=== PATIENT | male | born 1980 | race African-American/Black ===

== ENCOUNTER 2019-10-07 22:23 | Observation (INO) | payer BC ==
[2019-10-07] MEDS ORDERED: Ketorolac 15 MG/ML SDV IVPUSH ONE (23:41)
[2019-10-07] MEDS ORDERED: Sodium Chloride 0.9% 1,000 ML IV ONE (23:41)
[2019-10-07] MEDS ORDERED: Sodium Chloride 0.9% 2.5 ML Syringe FLUSH PRN (23:41)
[2019-10-07] MEDS ORDERED: Sodium Chloride 0.9% 10 ML Syringe FLUSH PRN (23:41)
[2019-10-07] MEDS ORDERED: Morphine 4 MG/ML Syringe IVPUSH ONE (23:41)
--- NOTE | 2019-10-07 23:45 | EDM.PDOC ---
ED HPI GENERAL MEDICAL PROBLEM - General Chief Complaint: Skin Complaint Stated Complaint: INFECTION Time Seen by Provider: 10/07/19 23:21 - History of Present Illness INITIAL COMMENTS - FREE TEXT/NARRATIVE: History of present illness: 39-year-old male presenting with rectal/perianal pain. Patient reports about 1 week ago he had a hemorrhoidectomy and fistula repair done in [place]. Since then he has been having ongoing pain, however the last few days pain has become significantly worsened and more sharp in character. He has been taking the oxycodone that was prescribed but pain has not improved. He has now noticed cuauhtemoc th bleeding and pus coming from the anal area. No diarrhea. No fevers or chills. He does report he has a history of HIV for which he takes his medication and is compliant. Last CD4 count was 490 and viral load was undetectable. Reports he also had a hemorrhoidectomy several months prior to this and did not have anywhere near this pain level. Review of systems: As per history of present illness and below otherwise all systems reviewed and negative. Past medical history: As per history of present illness and as reviewed below otherwise noncontributory. Surgical history: As per history of present illness and as reviewed below otherwise noncontributory. Social history: No reported history of drug or alcohol abuse. Family history: As per history of present illness and as reviewed below otherwise noncontributory. Physical exam: GEN: no acute distress, well appearing HEENT: Atraumatic, normocephalic, mucous membranes moist, Neck: supple, nontender, trachea midline. Lungs: No respiratory distress. Heart: RRR Abdomen: Soft, nondistended, nontender. Rectal: Fistula site appears inflamed with purulent discharge. Very tender on rectal exam. External hemorrhoids. No thrombosed hemorrhoids. No anal fissure seen, no masses palpable on rectal exam Back: nontender Extremities: Atraumatic. Neurovascularly intact. Neuro: Awake, alert, oriented. Neuro Exam nonfocal. Skin: warm, dry, no lesions Diagnostics: [] Therapeutics: [] MDM: Impression: [] Plan: [] Definitive disposition and diagnosis as appropriate pending reevaluation and review of above. anal Pain Score (Numeric/FACES): 8 - Related Data Allergies Allergy/AdvReac Type Severity Reaction Status Date / Time No Known Allergies Allergy Verified 10/07/19 23:14 Home Meds: Home Meds Non-Formulary Medication [NF Drug] 10/07/19 [History] Past Medical History Other Gastrointestinal History: anal fistula repair - Infectious Disease History Infectious Disease History: Reports: HIV-Human Immunodeficiency Virus ED ROS GENERAL - Review of Systems Review Of Systems: See Below (See dictation) ED EXAM, SKIN/RASH Exam: See Below (See dictation) Course - Vital Signs Text/Narrative:: Perianal/perirectal pain. Immunocompromised/HIV positive. Recent hemorrhoidectomy/fistula repair. Labs unremarkable. CT scan shows right buttock cellulitis to the anal edge but not involving anus and no deep space infection/abscess or fluid collection. Broad spectrum antibiotics given. Cipro/Clinda. Last Recorded V/S: Last Vital Signs Temp 97.0 F 10/07/19 23:10 Pulse 105 H 10/07/19 23:10 Resp 18 10/07/19 23:10 BP 149/110 H 10/07/19 23:10 Pulse Ox 97 10/07/19 23:10 - Orders/Labs/Meds Orders: Active Orders 24 hr Category Date Time Status Ciprofloxacin in D5W [Cipro in D5W 400 MG/200 ML] 400 Med 10/08/19 01:52 Active mg Premix Bag 1 bag IV ONETIME Sodium Chloride 0.9% [Saline Flush] Med 10/07/19 23:41 Active 10 ml FLUSH ASDIRECTED PRN Sodium Chloride 0.9% [Saline Flush] Med 10/07/19 23:41 Active 2.5 ml FLUSH ASDIRECTED PRN Saline Lock Insert [OM.PC] Stat Oth 10/07/19 23:42 Ordered Medication Orders Ciprofloxacin/Dextrose 400 mg/ (Premix) 200 mls @ 200 mls/hr IV ONETIME ONE Stop: 10/08/19 02:51 Last Admin: 10/08/19 02:10 Dose: 200 mls/hr Documented by: NOMI Piperacillin Sod/Tazobactam (Sod 3.375 gm/ Sodium Chloride) 50 mls @ 100 mls/hr IV Q6H RICK Oxycodone HCl (Oxycodone) 5 mg PO Q4H PRN PRN Reason: Pain (moderate 4-6) Sodium Chloride (Saline Flush) 10 ml FLUSH ASDIRECTED PRN PRN Reason: Keep Vein Open Sodium Chloride (Saline Flush) 2.5 ml FLUSH ASDIRECTED PRN PRN Reason: Keep Vein Open Vancomycin HCl (Pharmacy To Dose - Vancomycin) 1 dose .XX ASDIRECTED RICK Labs: Laboratory Tests 10/07/19 10/07/19 Range/Units 23:55 23:55 WBC 7.47 (4.0-11.0) K/uL RBC 5.05 (4.50-5.90) M/uL Hgb 14.4 (13.0-17.0) g/dL Hct 44.8 (38.0-50.0) % MCV 88.7 (80.0-98.0) fL MCH 28.5 (27.0-32.0) pg MCHC 32.1 (31.0-37.0) g/dL RDW Std Deviation 44.8 (28.0-62.0) fl RDW Coeff of Ajay 14 (11.0-15.0) % Plt Count 285 (150-400) K/uL MPV 11.00 (7.40-12.00) fL Neut % (Auto) 39.5 L (48.0-80.0) % Lymph % (Auto) 48.1 H (16.0-40.0) % [place] % (Auto) 11.0 (0.0-15.0) % Eos % (Auto) 1.1 (0.0-7.0) % Baso % (Auto) 0.3 (0.0-1.5) % Neut # (Auto) 3.0 (1.4-5.7) K/uL Lymph # (Auto) 3.6 H (0.6-2.4) K/uL [place] # (Auto) 0.8 (0.0-0.8) K/uL Eos # (Auto) 0.1 (0.0-0.7) K/uL Baso # (Auto) 0.0 (0.0-0.1) K/uL Nucleated RBC % 0.0 /100WBC Nucleated RBCs # 0 K/uL Sodium 139 (136-148) mmol/L Potassium 4.3 (3.5-5.1) mmol/L Chloride 104 (98-107) mmol/L Carbon Dioxide 26.0 (21.0-32.0) mmol/L BUN 17 (7.0-18.0) mg/dL Creatinine 1.3 (0.8-1.3) mg/dL Est Cr Clr Drug Dosing TNP Estimated GFR (MDRD) > 60.0 ml/min Glucose 129 H (74-106) mg/dL Calcium 9.9 (8.5-10.1) mg/dL Total Bilirubin 0.1 L (0.2-1.0) mg/dL AST 39 H (15-37) IU/L ALT 58 (14-63) IU/L Alkaline Phosphatase 56 (46-116) U/L Total Protein 9.3 H (6.4-8.2) g/dL Albumin 4.0 (3.4-5.0) g/dL Globulin 5.3 H (2.6-4.0) g/dL Albumin/Globulin Ratio 0.8 L (0.9-1.6) Meds: Medications Generic Name Dose Route Start Last Admin Trade Name Freq PRN Reason Stop Dose Admin Ciprofloxacin/Dextrose 400 mg/ 200 mls @ 200 mls/hr 10/08/19 01:52 10/08/19 02:10 Premix IV 10/08/19 02:51 200 mls/hr ONETIME ONE Administration Piperacillin Sod/Tazobactam 50 mls @ 100 mls/hr 10/08/19 04:00 Sod 3.375 gm/ Sodium Chloride IV Q6H RICK Oxycodone HCl 5 mg 10/08/19 02:24 Oxycodone PO Q4H PRN Pain (moderate 4-6) Sodium Chloride 10 ml 10/07/19 23:41 Saline Flush FLUSH ASDIRECTED PRN Keep Vein Open Sodium Chloride 2.5 ml 10/07/19 23:41 Saline Flush FLUSH ASDIRECTED PRN Keep Vein Open Vancomycin HCl 1 dose 10/08/19 02:30 Pharmacy To Dose - Vancomycin .XX ASDIRECTED RICK Discontinued Medications Generic Name Dose Route Start Last Admin Trade Name Freq PRN Reason Stop Dose Admin Sodium Chloride 1,000 mls @ 999 mls/hr 10/07/19 23:41 10/08/19 00:28 Normal Saline IV 10/08/19 00:41 999 mls/hr .Bolus ONE Administration Clindamycin Phosphate 600 mg/ 33.3333 mls @ 100 mls/hr 10/08/19 01:49 Premix IV 10/08/19 02:08 ONETIME ONE Iopamidol 100 ml 10/08/19 01:42 10/08/19 01:45 Isovue-370 (76%) IVPUSH 10/08/19 01:43 100 ml ONETIME STA Administration Ketorolac Tromethamine 15 mg 10/07/19 23:41 10/08/19 00:28 Toradol IVPUSH 10/07/19 23:42 15 mg ONETIME ONE Administration Morphine Sulfate 4 mg 10/07/19 23:41 10/08/19 00:30 Morphine IVPUSH 10/07/19 23:42 4 mg ONETIME ONE Administration - Re-Assessments/Exams Free Text/Narrative Re-Assessment/Exam: 10/08/19 01:48 Discussed all results with the patient. He is feeling somewhat better. Discussed recommendation for admission to the hospital for IV antibiotics and close monitoring overnight to ensure no worsening of the cellulitis. Patient agrees with this plan. 10/08/19 01:[address] Servin for admission, who agrees and accepts admission. Placed under observation as the patient may be able to go home tomorrow if feeling better. Departure - Departure Time of Disposition: 01:48 Disposition: Refer to Observation Clinical Impression: Perianal cellulitis - Discharge Information Sepsis Event Note (ED) - Evaluation Sepsis Screening Result: No Definite Risk - Focused Exam Vital Signs: Vital Signs Temp Pulse Resp BP Pulse Ox 10/07/19 23:10 97.0 F 105 H 18 149/110 H 97 - My Orders Last 24 Hours: My Active Orders 10/07/19 23:41 Sodium Chloride 0.9% [Saline Flush] 10 ml FLUSH ASDIRECTED PRN Sodium Chloride 0.9% [Saline Flush] 2.5 ml FLUSH ASDIRECTED PRN 10/07/19 23:42 Saline Lock Insert [OM.PC] Stat 10/08/19 01:52 Ciprofloxacin in D5W [Cipro in D5W 400 MG/200 ML] 400 mg Premix Bag 1 bag IV ONETIME - Assessment/Plan Last 24 Hours: My Active Orders 10/07/19 23:41 Sodium Chloride 0.9% [Saline Flush] 10 ml FLUSH ASDIRECTED PRN Sodium Chloride 0.9% [Saline Flush] 2.5 ml FLUSH ASDIRECTED PRN 10/07/19 23:42 Saline Lock Insert [OM.PC] Stat 10/08/19 01:52 Ciprofloxacin in D5W [Cipro in D5W 400 MG/200 ML] 400 mg Premix Bag 1 bag IV ONETIME
[2019-10-08 00:23] LABS: BLOOD UREA NITROGEN,BUN 17 mg/dL (7.0-18.0); CHLORIDE,CL 104 mmol/L (98-107); GLUCOSE RANDOM 129 mg/dL (74-106); POTASSIUM,K 4.3 mmol/L (3.5-5.1); SODIUM,NA 139 mmol/L (136-148)
--- NOTE | 2019-10-08 01:30 | CT ---
INDICATION: Possible perirectal or perianal abscess. Pain. COMPARISON: None available TECHNIQUE: CT examination of the abdomen and pelvis was performed with the uneventful intravenous administration of 100 cc of Isovue 370 while 3 mm thick axial sections were obtained from the lung bases through the pubic symphysis. Oral contrast was not administered. Please note that all CT scans at this facility use dose modulation, iterative reconstruction, and/or weight-based dosing when appropriate to reduce radiation dose to as low as reasonably achievable. FINDINGS: In the abdomen, the liver has patchy low density consistent with fatty infiltration. It is otherwise normal in appearance. The spleen, pancreas, and adrenals are normal in appearance. There is a 1.3 centimeter cyst in the lower pole of the right kidney. Tiny cysts are seen scattered throughout the left kidney. The kidneys are otherwise normal in appearance. The gallbladder is normal in appearance. The abdominal aorta is normal in caliber with no sign of dilatation. There is no sign of retroperitoneal mass or adenopathy. The stomach, loops of small bowel, and colon in the abdomen are normal in appearance. In the pelvis, the appendix is normal in appearance with no sign of inflammatory process. The loops of small bowel and colon in the pelvis are normal in appearance. The prostate is normal in appearance. The urinary bladder is normal in appearance. There is no sign of pelvic or inguinal mass or adenopathy. There is mild inflammatory stranding in the medial right buttock extending superiorly to the anal verge, but not into or beyond the anus. There is no sign of any inflammatory stranding in the perirectal space. There is no sign of any fluid collection, gas in the soft tissues, or foreign body. The findings are that of mild common nonspecific cellulitis. There is no sign of free air or free fluid in the abdomen or pelvis. There is mild linear density along the medial aspect of the right lung base consistent with previous inflammatory disease. The rest of the lung bases is clear. The osseous structures are normal in appearance for the patient`s age. IMPRESSION: CT of the abdomen shows patchy fatty infiltration of the liver. CT of the pelvis shows mild cellulitis of the right medial buttock extending to the anal verge, but not into the anus or into the perirectal space. No sign of any abscess. No sign of any foreign body. Please note that all CT scans at this facility use dose modulation, iterative reconstruction, and/or weight-based dosing when appropriate to reduce radiation dose to as low as reasonably achievable. Dictated by Gurjit Erwin MD @ Oct 08 2019 1:21AM Signed by Dr. Gurjit Erwin @ Oct 08 2019 1:28AM
[2019-10-08] MEDS ORDERED: Iopamidol 755 Mg/ML 100 ML Bottle IVPUSH STA (01:42)
[2019-10-08] MEDS ORDERED: Clindamycin Phosphate in D5W 600 MG in Premix Bag 1 BAG IV ONE ×2 (01:49)
[2019-10-08] MEDS ORDERED: Ciprofloxacin in D5W 400 MG in Premix Bag 1 BAG IV ONE ×2 (01:52)
[2019-10-08] MEDS: oxyCODONE 5 MG Tab PO PRN ×2 (03:06→09:14)
[2019-10-08] MEDS ORDERED: Clindamycin Phosphate in D5W 50 ML ONE (03:12)
[2019-10-08] MEDS: Piperacillin/Tazobactam 3.375 GM in Sodium Chloride 0.9% 50 ML IV SCH ×2 (04:28→09:16)
--- NOTE | 2019-10-08 08:00 | PCM.HP.2 ---
H&P History of Present Illness - General Date of Service: 10/08/19 Admit Problem/Dx: Admission Diagnosis/Problem Admission Diagnosis/Problem Cellulitis of buttock Source of Information: Patient History Limitations: Reports: No Limitations - History of Present Illness Initial Comments - Free Text/Narative: This 39 year old male with pmh of HIV and hemorrhoids presented to the ED last evening with complaints of rectal pain and purulent drainage. He reports he had hemorrhoidectomy [address] Sal in [place]. He reports pain was a little more than his previous hemorrhoidectomy and was needing pain medications which Dr Sal provided. He reports two days ago the pain elevated from a throbbing to a sharp stabbing pain and the drainage became slightly blood and purulent. He decided to be evaluated in the ED. He denies fevers or chills. No dyspnea or chest pain. Denies abdominal pain or urinary trouble. Reports he has taken some stool softeners since surgery and had BM 1 day ago. He reports he has been doing some sitz baths, but not regularly. He denies recreational drug use, no tobacco use and rare/social alcohol use. He reports he has been complaint with anti retrovirals for HIV, only missed last night because he didn't bring it with him. Reports CD4 counts have been low. Denies antibiotics after procedure in [place]. In the ED labwork WNL. CT abd/pelvis revealed mild cellulitis of the right medial buttock extending to the anal verge, but not into the anus or into the perirectal space. he was treated with Ciprofloxacin and Clindamycin in the ED and admitted for observation. anal Pain Score (Numeric/FACES): 6 - Related Data Allergies/Adverse Reactions: Allergies Allergy/AdvReac Type Severity Reaction Status Date / Time No Known Allergies Allergy Verified 10/08/19 05:04 Home Medications: Home Meds Bictegrav/Emtricit/Tenofov Ala [Biktarvy 50-200-25 mg Tablet] 1 tab PO DAILY 10/08/19 [History] Budesonide/Formoterol [Symbicort 160-4.5 MCG] 2 inh IH BID PRN 10/08/19 [History] Ciprofloxacin [Ciprofloxacin HCl] 500 mg PO BID #14 tab 10/08/19 [Rx] Docusate Sodium [Colace] 100 mg PO BID #60 cap 10/08/19 [Rx] Ibuprofen [Motrin] 400 mg PO QID PRN #1 tab 10/08/19 [Rx] RABEprazole Sodium [Aciphex] 20 mg PO DAILY 10/08/19 [History] metroNIDAZOLE [Flagyl] 500 mg PO Q8H #21 tablet 10/08/19 [Rx] oxyCODONE 10 mg PO Q6H PRN #15 tablet 10/08/19 [Rx] Past Medical History Other Gastrointestinal History: anal fistula repair - Infectious Disease History Infectious Disease History: Reports: HIV-Human Immunodeficiency Virus - Past Surgical History GI Surgical History: Reports: Other (See Below) (hemorrhoidectomy x 2, recently September 2019) Social & Family History - Tobacco Use Smoking Status *Q: Never Smoker - Caffeine Use Caffeine Use: Reports: Soda - Alcohol Use Alcohol Use Frequency: Rarely, Socially - Recreational Drug Use Recreational Drug Use: No - Living Situation & Occupation Living situation: Reports: Alone Occupation: Employed H&P Review of Systems - Review of Systems: Review Of Systems: See Below General: Reports: No Symptoms. Denies: Fever, Chills, Malaise, Weakness Pulmonary: Reports: No Symptoms. Denies: Shortness of Breath Cardiovascular: Reports: No Symptoms. Denies: Chest Pain Gastrointestinal: Reports: Other (rectal pain with purulent drainage.). Denies: Abdominal Pain, Black Stool, Bloody Stool, Nausea, Vomiting Skin: Reports: Wound (rectal incision) Neurological: Reports: No Symptoms Hematologic/Lymphatic: Reports: No Symptoms Immunologic: Reports: No Symptoms Exam - Exam Exam: See Below - Vital Signs Vital Signs: Last Vital Signs Temp 98.7 F 10/08/19 02:59 Pulse 88 10/08/19 02:59 Resp 15 10/08/19 02:59 BP 140/98 H 10/08/19 02:59 Pulse Ox 95 10/08/19 02:59 Weight: 100.2 kg - Exam General: Alert, Oriented, Cooperative Lungs: Clear to Auscultation, Normal Respiratory Effort Cardiovascular: Regular Rate, Regular Rhythm GI/Abdominal Exam: Normal Bowel Sounds, Soft, Non-Tender Rectal (Males) Exam: Normal Rectal Tone, Tenderness, Other (incision noted near 3 o clock of rectum. Purulent/serous drainage noted from rectum and incision. Tenderness noted. no fluctuance.). No: Black Stool, Bloody Stool, Hemorrhoids Extremities: Normal Inspection, Normal Range of Motion, Non-Tender, No Pedal Edema Neuro Extensive - Mental Status: Alert, Oriented x3 Neuro Extensive - Motor, Sensory, Reflexes: CN II-XII Intact Psychiatric: Alert, Normal Affect, Normal Mood - Patient Data Lab Results Last 24 hrs: Laboratory Results - last 24 hr 10/07/19 10/07/19 Range/Units 23:55 23:55 WBC 7.47 (4.0-11.0) K/uL RBC 5.05 (4.50-5.90) M/uL Hgb 14.4 (13.0-17.0) g/dL Hct 44.8 (38.0-50.0) % MCV 88.7 (80.0-98.0) fL MCH 28.5 (27.0-32.0) pg MCHC 32.1 (31.0-37.0) g/dL RDW Std Deviation 44.8 (28.0-62.0) fl RDW Coeff of Ajay 14 (11.0-15.0) % Plt Count 285 (150-400) K/uL MPV 11.00 (7.40-12.00) fL Neut % (Auto) 39.5 L (48.0-80.0) % Lymph % (Auto) 48.1 H (16.0-40.0) % [place] % (Auto) 11.0 (0.0-15.0) % Eos % (Auto) 1.1 (0.0-7.0) % Baso % (Auto) 0.3 (0.0-1.5) % Neut # (Auto) 3.0 (1.4-5.7) K/uL Lymph # (Auto) 3.6 H (0.6-2.4) K/uL [place] # (Auto) 0.8 (0.0-0.8) K/uL Eos # (Auto) 0.1 (0.0-0.7) K/uL Baso # (Auto) 0.0 (0.0-0.1) K/uL Nucleated RBC % 0.0 /100WBC Nucleated RBCs # 0 K/uL Sodium 139 (136-148) mmol/L Potassium 4.3 (3.5-5.1) mmol/L Chloride 104 (98-107) mmol/L Carbon Dioxide 26.0 (21.0-32.0) mmol/L BUN 17 (7.0-18.0) mg/dL Creatinine 1.3 (0.8-1.3) mg/dL Est Cr Clr Drug Dosing TNP Estimated GFR (MDRD) > 60.0 ml/min Glucose 129 H (74-106) mg/dL Calcium 9.9 (8.5-10.1) mg/dL Total Bilirubin 0.1 L (0.2-1.0) mg/dL AST 39 H (15-37) IU/L ALT 58 (14-63) IU/L Alkaline Phosphatase 56 (46-116) U/L Total Protein 9.3 H (6.4-8.2) g/dL Albumin 4.0 (3.4-5.0) g/dL Globulin 5.3 H (2.6-4.0) g/dL Albumin/Globulin Ratio 0.8 L (0.9-1.6) Result Diagrams: 10/07/19 23:55 10/07/19 23:55 Sepsis Event Note - Evaluation Sepsis Screening Result: No Definite Risk - Focused Exam Vital Signs: Vital Signs Temp Pulse Resp BP Pulse Ox 10/08/19 02:59 98.7 F 88 15 140/98 H 95 10/08/19 02:00 71 16 147/96 H 99 10/08/19 01:00 78 16 148/96 H 99 10/07/19 23:10 97.0 F 105 H 18 149/110 H 97 Date Exam was Performed: 10/08/19 Time Exam was Performed: 13:54 - Problem List (1) Perianal cellulitis SNOMED Code(s): 663829798 ICD Code: K61.0 - ANAL ABSCESS Status: Acute Current Visit: Yes (2) Hx of hemorrhoidectomy SNOMED Code(s): 300796255, 799954822, [id number] ICD Code: Z98.890 - OTHER SPECIFIED POSTPROCEDURAL STATES Status: Chronic Current Visit: Yes (3) HIV (human immunodeficiency virus infection) SNOMED Code(s): 55444823 ICD Code: B20 - HUMAN IMMUNODEFICIENCY VIRUS [HIV] DISEASE Status: Chronic Current Visit: Yes Qualifiers: HIV symptom status: asymptomatic Qualified Code(s): Z21 - Asymptomatic human immunodeficiency virus [HIV] infection status Problem List Initiated/Reviewed/Updated: Yes Orders Last 24hrs: Active Orders 24 hr Category Date Time Status Patient Status [ADT] Routine ADT 10/08/19 01:58 Active Regular Diet [DIET] Diet 10/08/19 Breakfast Active VANCOMYCIN TROUGH [CHEM] Timed Lab 10/09/19 20:30 Ordered Pharmacy to Dose - Vancomycin Med 10/08/19 02:30 Active 1 dose .XX ASDIRECTED Piperacillin/Tazobactam [Piperacil-Tazobact] 3.375 gm Med 10/08/19 04:00 Active Sodium Chloride 0.9% [Normal Saline] 50 ml IV Q6H Sodium Chloride 0.9% [Saline Flush] Med 10/07/19 23:41 Active 10 ml FLUSH ASDIRECTED PRN Sodium Chloride 0.9% [Saline Flush] Med 10/07/19 23:41 Active 2.5 ml FLUSH ASDIRECTED PRN VANCOmycin/Water for INJ (PEG) [VANCOmycin 1.5 GM/300 Med 10/08/19 05:00 Active ML Premix] 300 ml IV Q8H oxyCODONE Med 10/08/19 02:24 Active 5 mg PO Q4H PRN Saline Lock Insert [OM.PC] Stat Oth 10/07/19 23:42 Ordered Medication Orders Piperacillin Sod/Tazobactam (Sod 3.375 gm/ Sodium Chloride) 50 mls @ 100 mls/hr IV Q6H [facility] Last Admin: 10/08/19 04:28 Dose: 100 mls/hr Documented by: PASTGEN Vancomycin HCl (Vancomycin 1.5 Gm/300 Ml Premix) 300 mls @ 200 mls/hr IV Q8H RICK Last Admin: 10/08/19 05:12 Dose: 200 mls/hr Documented by: PASTGEN Oxycodone HCl (Oxycodone) 5 mg PO Q4H PRN PRN Reason: Pain (moderate 4-6) Last Admin: 10/08/19 03:06 Dose: 5 mg Documented by: PASTGEN Sodium Chloride (Saline Flush) 10 ml FLUSH ASDIRECTED PRN PRN Reason: Keep Vein Open Sodium Chloride (Saline Flush) 2.5 ml FLUSH ASDIRECTED PRN PRN Reason: Keep Vein Open Vancomycin HCl (Pharmacy To Dose - Vancomycin) 1 dose .XX ASDIRECTED [facility] Assessment/Plan Comment:: This 39 year old male admitted with R buttock cellulitis and suspected proctitis 1. Cellulitis and proctitis - Recent hemorrhoidectomy by Dr Sal in [place]. I di speak with Dr Sal this morning, he was able to review images. Agrees with treatment. He would recommend more sitz baths at home as well as Cipro and Flagyl. He continues to want him to return October 21 for follow up - Continued Zosyn and Vancomycin since admission - Feeling much improved today, requesting discharge home. Discharge Plan: Remains stable, no chest pain and no fevers. VS stable. Pain controlled with Oxycodone, reports he only has a couple days left. Encourage sitz baths 3-4 times daily. Continue colace. Also encouraged to add in Motrin every 4-6 hours to help with pain as well. I will send a couple more days worth of Oxycodone due to pain with cellulitis. Otherwise he would need to reach out to Dr Sal or PCP for more. He is to monitor for fevers or chills. He will be discharged home today. He is to continue HIV medications per usual and return for any concerns of increased pain, drainage or fevers.
[2019-10-08] MEDS ORDERED: Acetaminophen 325 MG Tab PO PRN (08:01)
[2019-10-08] MEDS ORDERED: Ondansetron 4 MG/2 ML SDV IVPUSH PRN (08:01)
[2019-10-08] MEDS ORDERED: Docusate Sodium 100 MG Cap PO SCH (09:00)
[2019-10-08] MEDS ORDERED: oxyCODONE 5 MG Tab PO ONE (09:45)
[2019-10-08] MEDS ORDERED: oxyCODONE 5 MG Tab PO PRN (13:45)
== END 2019-10-08 15:00 | disposition home or self-care (01) ==
LOC: MW.ED 22:23 → MW.MS 10-08 01:58
PROVIDERS: ADMIT Internal Medicine; ATTEND Internal Medicine
DX: K91.89 Other postprocedural complications and disorders of digestive system (principal); K61.0 Anal abscess; K62.89 Other specified diseases of anus and rectum; Z98.890 Other specified postprocedural states; Z21 Asymptomatic human immunodeficiency virus [HIV] infection status; Z79.899 Other long term (current) drug therapy
CPT/HCPCS: 36415; 74177; 74177-26; 80053; 85025; 96365; 96375; 99284-25; A9270-GY; J0744; J1885; J2270; J2543; J3370; J3490; J7030; J7050; Q9967

== ENCOUNTER 2019-11-09 22:30 | Emergency (ER) | payer BC ==
--- NOTE | 2019-11-09 22:35 | EDM.PDOC ---
ED HPI GENERAL MEDICAL PROBLEM - General Stated Complaint: POSSIBLE INFECTION WOUND Time Seen by Provider: 11/09/19 22:33 Source of Information: Reports: Patient History Limitations: Reports: No Limitations - History of Present Illness INITIAL COMMENTS - FREE TEXT/NARRATIVE: 39-year-old male with history of HIV, presents with concerns for possible wound infection. He recently underwent gastric sleeve in [facility] on 10/28. Given his immunocompromise state, he was discharged with Keflex which he stopped 3 days ago due to diarrhea. The wound on the lateral upper abdomen dehisced yesterday with purulent discharge, he also notes subjective fevers and chills. Denies abdominal pain. ROS: A 10-point review of systems, other than pertinent positives and negatives as stated per HPI, is otherwise negative Past medical history: No additional pertinent history Past Surgical history: No additional pertinent history Social history: No additional pertinent history Family history: No additional pertinent history PHYSICAL EXAM General: AOx4, GCS = 15, No distress HEENT: dry mucous membrane Neck: supple, no meningismus, no Kernig or Brudzinski Cardiac: S1S2 tachycardia Respiratory: CTAB, no crackles or rales, no wheezing Abdomen: Soft, LUQ 1cm dehiced wound, with no drainage. nontender, other incisions are C/D/I, no rebound or guarding, nondistended, no pulsatile mass. Back: nontender Musculoskeletal: NVI distally, no deformity Neuro: No focal deficits Left Middle Abdominal Pain Score (Numeric/FACES): 3 - Related Data Allergies Allergy/AdvReac Type Severity Reaction Status Date / Time No Known Allergies Allergy Verified 11/09/19 22:51 Home Meds: Home Meds Bictegrav/Emtricit/Tenofov Ala [Biktarvy 50-200-25 mg Tablet] 1 tab PO DAILY 10/08/19 [History] Budesonide/Formoterol [Symbicort 160-4.5 MCG] 2 inh IH BID PRN 10/08/19 [History] Docusate Sodium [Colace] 100 mg PO BID #60 cap 10/08/19 [Rx] Ibuprofen [Motrin] 400 mg PO QID PRN #1 tab 10/08/19 [Rx] RABEprazole Sodium [Aciphex] 20 mg PO DAILY 10/08/19 [History] oxyCODONE 10 mg PO Q6H PRN #15 tablet 10/08/19 [Rx] Past Medical History Other Gastrointestinal History: anal fistula repair - Infectious Disease History Infectious Disease History: Reports: HIV-Human Immunodeficiency Virus - Past Surgical History GI Surgical History: Reports: Other (See Below) (hemorrhoidectomy x 2, recently September 2019) Social & Family History - Caffeine Use Caffeine Use: Reports: Soda - Living Situation & Occupation Living situation: Reports: Alone Occupation: Employed ED ROS GENERAL - Review of Systems Review Of Systems: Comprehensive ROS is negative, except as noted in HPI. ED EXAM, GENERAL - Physical Exam Exam: See Below (see dictation) Exam Limited By: No Limitations Course - Vital Signs Last Recorded V/S: Last Vital Signs Temp 97.9 F 11/09/19 22:42 Pulse 84 11/10/19 01:49 Resp 14 11/10/19 01:49 BP 114/56 L 11/10/19 01:49 Pulse Ox 98 11/10/19 01:49 - Orders/Labs/Meds Orders: Active Orders 24 hr Category Date Time Status CULTURE BLOOD [BC] Stat Lab 11/09/19 23:10 Received CULTURE BLOOD [BC] Stat Lab 11/09/19 23:18 Received Piperacillin/Tazobactam [Piperacil-Tazobact] 3.375 gm Med 11/10/19 01:55 Ordered Sodium Chloride 0.9% [Normal Saline] 50 ml IV ONETIME Sodium Chloride 0.9% [Saline Flush] Med 11/09/19 22:57 Active 10 ml FLUSH ASDIRECTED PRN Sodium Chloride 0.9% [Saline Flush] Med 11/09/19 22:57 Active 2.5 ml FLUSH ASDIRECTED PRN Blood Culture x2 Reflex Set [OM.PC] Stat Oth 11/09/19 22:57 Ordered Saline Lock Insert [OM.PC] Stat Oth 11/09/19 22:57 Ordered Medication Orders Piperacillin Sod/Tazobactam (Sod 3.375 gm/ Sodium Chloride) 50 mls @ 100 mls/hr IV ONETIME ONE Stop: 11/10/19 02:24 Sodium Chloride (Saline Flush) 10 ml FLUSH ASDIRECTED PRN PRN Reason: Keep Vein Open Sodium Chloride (Saline Flush) 2.5 ml FLUSH ASDIRECTED PRN PRN Reason: Keep Vein Open Labs: Laboratory Tests 11/09/19 11/09/19 11/09/19 Range/Units 23:10 23:10 23:10 WBC 7.35 (4.0-11.0) K/uL RBC 5.17 (4.50-5.90) M/uL Hgb 14.8 (13.0-17.0) g/dL Hct 45.2 (38.0-50.0) % MCV 87.4 (80.0-98.0) fL MCH 28.6 (27.0-32.0) pg MCHC 32.7 (31.0-37.0) g/dL RDW Std Deviation 44.3 (28.0-62.0) fl RDW Coeff of Ajay 14 (11.0-15.0) % Plt Count 280 (150-400) K/uL MPV 11.00 (7.40-12.00) fL Neut % (Auto) 46.2 L (48.0-80.0) % Lymph % (Auto) 44.6 H (16.0-40.0) % [place] % (Auto) 8.0 (0.0-15.0) % Eos % (Auto) 0.8 (0.0-7.0) % Baso % (Auto) 0.4 (0.0-1.5) % Neut # (Auto) 3.4 (1.4-5.7) K/uL Lymph # (Auto) 3.3 H (0.6-2.4) K/uL [place] # (Auto) 0.6 (0.0-0.8) K/uL Eos # (Auto) 0.1 (0.0-0.7) K/uL Baso # (Auto) 0.0 (0.0-0.1) K/uL Nucleated RBC % 0.0 /100WBC Nucleated RBCs # 0 K/uL Lactate 1.5 (0.20-2.00) mmol/L Sodium 140 (136-148) mmol/L Potassium 4.3 (3.5-5.1) mmol/L Chloride 102 (98-107) mmol/L Carbon Dioxide 23.1 (21.0-32.0) mmol/L BUN 23 H (7.0-18.0) mg/dL Creatinine 1.6 H (0.8-1.3) mg/dL Est Cr Clr Drug Dosing 57.38 mL/min Estimated GFR (MDRD) 58.3 ml/min Glucose 119 H (74-106) mg/dL Calcium 9.6 (8.5-10.1) mg/dL Total Bilirubin 0.3 (0.2-1.0) mg/dL AST 44 H (15-37) IU/L ALT 59 (14-63) IU/L Alkaline Phosphatase 60 (46-116) U/L Total Protein 9.9 H (6.4-8.2) g/dL Albumin 4.1 (3.4-5.0) g/dL Globulin 5.8 H (2.6-4.0) g/dL Albumin/Globulin Ratio 0.7 L (0.9-1.6) Meds: Medications Generic Name Dose Route Start Last Admin Trade Name Freq PRN Reason Stop Dose Admin Piperacillin Sod/Tazobactam 50 mls @ 100 mls/hr 11/10/19 01:55 Sod 3.375 gm/ Sodium Chloride IV 11/10/19 02:24 ONETIME ONE Sodium Chloride 10 ml 11/09/19 22:57 Saline Flush FLUSH ASDIRECTED PRN Keep Vein Open Sodium Chloride 2.5 ml 11/09/19 22:57 Saline Flush FLUSH ASDIRECTED PRN Keep Vein Open Discontinued Medications Generic Name Dose Route Start Last Admin Trade Name Freq PRN Reason Stop Dose Admin Lactated Ringer's 1,000 mls @ 999 mls/hr 11/09/19 22:57 11/09/19 23:31 Ringers, Lactated IV 11/09/19 23:57 999 mls/hr .BOLUS ONE Administration Vancomycin HCl 1.5 gm/ Premix 300 mls @ 300 mls/hr 11/10/19 01:55 IV 11/10/19 01:56 ONETIME ONE Iopamidol 100 ml 11/10/19 00:24 11/10/19 00:25 Isovue-370 (76%) IVPUSH 11/10/19 00:25 100 ml ONETIME ONE Administration - Re-Assessments/Exams Free Text/Narrative Re-Assessment/Exam: 11/10/19 01:[address] Jose Raul García, recommends transfer to [facility] given possible need for infectious disease given abscess failing outpatient antibiotics and history of HIV. 11/10/19 02:[address] Chanda Brandon, will accept transfer. I also discussed the case with their surgeon environmental safety specialist. Patient has elected to transfer by POV instead of ambulance. Patient will assume risk of transfer by POV, including motor vehicle accidents, . Departure - Departure Time of Disposition: 02:09 Disposition: DC/Tfer to Other 70 Condition: Good Clinical Impression: Abscess, Post-operative infection HIV (human immunodeficiency virus infection) Qualifiers: HIV symptom status: asymptomatic Qualified Code(s): Z21 - Asymptomatic human immunodeficiency virus [HIV] infection status - Discharge Information *PRESCRIPTION DRUG MONITORING PROGRAM REVIEWED*: Not Applicable *COPY OF PRESCRIPTION DRUG MONITORING REPORT IN PATIENT IAN: Not Applicable Referrals: Maulik Mendez MD [Primary Care Provider] - Additional Instructions: [facility] go to [facility] ER as soon as possible. THey are expecting you there. Sepsis Event Note (ED) - Focused Exam Vital Signs: Vital Signs Temp Pulse Resp BP Pulse Ox 11/10/19 01:49 84 14 114/56 L 98 11/09/19 22:42 97.9 F 106 H 16 142/86 H 97 - My Orders Last 24 Hours: My Active Orders 11/09/19 22:57 Sodium Chloride 0.9% [Saline Flush] 10 ml FLUSH ASDIRECTED PRN Sodium Chloride 0.9% [Saline Flush] 2.5 ml FLUSH ASDIRECTED PRN Blood Culture x2 Reflex Set [OM.PC] Stat Saline Lock Insert [OM.PC] Stat 11/09/19 23:10 CULTURE BLOOD [BC] Stat 11/09/19 23:18 CULTURE BLOOD [BC] Stat 11/10/19 01:55 Piperacillin/Tazobactam [Piperacil-Tazobact] 3.375 gm Sodium Chloride 0.9% [Normal Saline] 50 ml IV ONETIME - Assessment/Plan Last 24 Hours: My Active Orders 11/09/19 22:57 Sodium Chloride 0.9% [Saline Flush] 10 ml FLUSH ASDIRECTED PRN Sodium Chloride 0.9% [Saline Flush] 2.5 ml FLUSH ASDIRECTED PRN Blood Culture x2 Reflex Set [OM.PC] Stat Saline Lock Insert [OM.PC] Stat 11/09/19 23:10 CULTURE BLOOD [BC] Stat 11/09/19 23:18 CULTURE BLOOD [BC] Stat 11/10/19 01:55 Piperacillin/Tazobactam [Piperacil-Tazobact] 3.375 gm Sodium Chloride 0.9% [Normal Saline] 50 ml IV ONETIME
[2019-11-09] MEDS ORDERED: Sodium Chloride 0.9% 2.5 ML Syringe FLUSH PRN (22:57)
[2019-11-09] MEDS ORDERED: Sodium Chloride 0.9% 10 ML Syringe FLUSH PRN (22:57)
[2019-11-09] MEDS ORDERED: Lactated Ringers 1,000 ML IV ONE (22:57)
[2019-11-09 23:47] LABS: CARBON DIOXIDE,CO2 23.1 mmol/L (21.0-32.0); POTASSIUM,K 4.3 mmol/L (3.5-5.1)
[2019-11-10] MEDS ORDERED: Iopamidol 755 Mg/ML 100 ML Bottle IVPUSH ONE (00:24)
--- NOTE | 2019-11-10 01:26 | CT ---
Clinical indication : Dehiscence of left upper quadrant. TECHNIQUE: Axial intravenously infused CT cuts were performed from above diaphragm to below the ischial tuberosities. FINDINGS: There is a minimal collection of fluid within the anterior subcutaneous fat of the left side of the abdomen measuring 3.1 x 2.1 x 0.8 cm. There is no underline incisional hernia. There are several left upper quadrant surgical clips and there has likely been a gastric sleeve procedure. The liver, spleen, pancreas and adrenal and left kidney appear normal. There is a 1.2 cm cortical cyst the right kidney. There are no enlarged retroperitoneal or mesenteric lymph nodes. There is no free intraperitoneal air or fluid. The colon and small bowel appear normal. The appendix is not inflamed. The urinary bladder, seminal vesicles and prostate gland appear normal. There no enlarged iliac or lymph nodes. There are no nodules masses lung bases. Impression : There is a minimal collection of fluid within the anterior subcutaneous fat of the left side of the abdomen measuring 3.1 x 2.1 x 0.8 cm. There is no underline incisional hernia. Please note that all CT scans at this facility use dose modulation, iterative reconstruction, and/or weight-based dosing when appropriate to reduce radiation dose to as low as reasonably achievable. Dictated by Mansoor Sood MD @ Nov 10 2019 1:19AM Signed by Dr. Mansoor Sood @ Nov 10 2019 1:24AM
[2019-11-10] MEDS ORDERED: Piperacillin/Tazobactam 3.375 GM in Sodium Chloride 0.9% 50 ML IV ONE (01:55)
== END 2019-11-10 02:25 ==
LOC: MW.ED 22:30
DX: K95.01 Infection due to gastric band procedure (principal); L02.211 Cutaneous abscess of abdominal wall; Z21 Asymptomatic human immunodeficiency virus [HIV] infection status; Z79.899 Other long term (current) drug therapy
CPT/HCPCS: 36415; 74177; 80053; 83605; 85025; 87040; 96360; 99284; J7120; Q9967